=== PATIENT | female | born 1950 | race Caucasian/White ===

== ENCOUNTER 2016-12-07 09:12 | Emergency (ER) | payer MEDICARE, BC ==
[2016-12-07 09:36] VITALS: BP 135/61
--- NOTE | 2016-12-07 10:36 | UC ---
Abdominal Pain Female HPI - HPI Summary HPI Summary: OCCASIONAL BURNING EPIGASTRIC PAIN BEGAN AFTER TAKING METHOTREXATE FOLIC ACID AND HYDROXYCHLOROQUINE IN OCTOBER. HAS BEEN IN COMMUNICATION WITH PCP & FINANCIAL SERVICES CONSULTANT REGARDING THIS CONCERN, BUT NO RELIEF OVER TIME. UNABLE TO GET APPOINTMENT WITH PCP UNTIL DECEMBER, UNABLE TO CONTACT [facility] FOR APPOINTMENT. NO BLACK OR TARRY STOOLS. RELIEF WITH TUMS -TYPE ANTACID. AGGRIVATED BY MILK AND ICE CREAM. - History of Current Complaint Chief Complaint: UCGI Stated Complaint: BURNING ABDOMINAL PAIN Time Seen by Provider: 12/07/16 09:58 Hx Obtained From: Patient Onset/Duration: Gradual Onset, Lasting Weeks, Still Present Severity Initially: Mild Severity Currently: Mild Location: Epigastric Radiates: No Character: Burning Aggravating Factor(s): Food Alleviating Factor(s): Antacids Allergies/Adverse Reactions: Allergies Allergy/AdvReac Type Severity Reaction Status Date / Time Aspirin Allergy Hives Verified 12/07/16 09:29 Sulfa Antibiotics AdvReac GI Upset Verified 12/07/16 09:29 and Diarrhea Home Medications: Home Medications Cholecalciferol [Vitamin D3 Ultra Strength] 12,500 unit PO MONTHLY 12/07/16 [ History Confirmed 12/07/16] Docusate CAP* [Colace Cap*] 200 mg PO DAILY PRN 12/07/16 [History Confirmed ] Insulin Degludec [Tresiba Flextouch] 28 unit SC BEDTIME 12/07/16 [History Confirmed 12/07/16] Polyethylene Glycol 3350* [Miralax*] 17 gm PO DAILY PRN 12/07/16 [History Confirmed 12/07/16] PMH/Surg Hx/FS Hx/Imm Hx Previously Healthy: Yes Endocrine History Of: Reports: Diabetes, Thyroid Disease - Surgical History Surgical History: Yes Surgery Procedure, Year, and Place: Hysterectomy, 1979. Tubal Ligation, 1973. , 1973 - Family History Known Family History: Positive: Diabetes - Social History Occupation: Employed Full-time Lives: With Family Alcohol Use: Occasionally Substance Use Type: None Smoking Status (MU): Never Smoked Tobacco - Immunization History Most Recent Influenza Vaccination: May 2016 Most Recent Pneumonia Vaccination: Never Review of Systems Constitutional: Negative Skin: Negative Eyes: Negative ENT: Negative Respiratory: Negative Cardiovascular: Negative Gastrointestinal: Abdominal Pain - EPIGASTRIC BURNING Genitourinary: Negative Motor: Negative Neurovascular: Negative Musculoskeletal: Negative Neurological: Negative Psychological: Negative All Other Systems Reviewed And Are Negative: Yes Physical Exam Triage Information Reviewed: Yes Appearance: Well-Appearing, No Pain Distress, Well-Nourished Vital Signs: Initial Vital Signs Temp 98.2 F 12/07/16 09:16 Pulse 76 12/07/16 09:16 Resp 16 12/07/16 09:16 BP 135/61 12/07/16 09:16 Pulse Ox 99 12/07/16 09:16 Vital Signs Reviewed: Yes Eye Exam: Normal ENT Exam: Normal ENT: Positive: Normal ENT inspection, Hearing grossly normal, Pharynx normal, TMs normal Dental Exam: Normal Neck exam: Normal Respiratory Exam: Normal Respiratory: Positive: Chest non-tender, Lungs clear, Normal breath sounds, No respiratory distress, No accessory muscle use Cardiovascular Exam: Normal Cardiovascular: Positive: RRR, No Murmur Abdomen Description: Negative: Nontender - MILD EPIGASTRIC TENDERNESS WITH DEEP PALPATION, CVA Tenderness (R), CVA Tenderness (L), Guarding, Hepatomegaly, McBurney's Point Tenderness Bowel Sounds: Positive: Present Musculoskeletal Exam: Normal Neurological Exam: Normal Psychological Exam: Normal Skin Exam: Normal Abd Pain Female Course/Dx - Differential Dx/Diagnosis Differential Diagnosis: Gall Bladder Disease, Hepatitis, Pancreatitis Provider Diagnoses: GASTRITIS. POSSIBLE ADVERSE MEDICATION REACTION ( METHOTREXATE 10% GASTRITIS/GERD REPORTED ADVERSE EFFECT) Discharge - Discharge Plan Condition: Stable Disposition: HOME Prescriptions: Pantoprazole Sodium [Protonix] 40 mg PO DAILY #14 tab Patient Education Materials: Gastritis (ED), Adverse Drug Reaction (ED) Referrals: Destini Mota MD [Primary Care Provider] - Damion Washburn MD [Medical Doctor] - Additional Instructions: PLEASE FOLLOW UP WITH YOUR RHUEMATOLOGIST. IF SYMPTOMS BECOME SEVERE OR IF NEW SYMPTOMS DEVELOP PLEASE SEEK EVALUATION AT EMERGENCY DEPARTMENT.
== END 2016-12-07 10:29 | disposition home or self-care (01) ==
LOC: UCCORT 09:12
DX: K29.70 Gastritis, unspecified, without bleeding (principal); Z88.6 Allergy status to analgesic agent; Z88.2 Allergy status to sulfonamides; E11.9 Type 2 diabetes mellitus without complications; Z79.4 Long term (current) use of insulin
CPT/HCPCS: 93005; 99212; G0463

== ENCOUNTER 2017-03-04 09:19 | Emergency (ER) | payer MEDICARE, BC ==
[2017-03-04 10:33] VITALS: BP 128/81
--- NOTE | 2017-03-04 10:48 | UC ---
Back Pain HPI - HPI Summary HPI Summary: left flank pain x 3 day , no known injury also noted to have multiple bruising on her arms bilaterally without injury no fever, no chills, no n/v/d/c , no urinary sx was treated recently with Methotrexate for arthritis, medication was stopped due to sever gastritis - History of Current Complaint Chief Complaint: UCUpperExtremity Stated Complaint: LEFT SIDE PAIN Time Seen by Provider: 03/04/17 10:02 Hx Obtained From: Patient Onset/Duration: Gradual Onset, Lasting Days - 3, Still Present Timing: Constant Severity Initially: Moderate Severity Currently: Moderate Back Pain: Is Discrete @ - left flank Character: Aching Aggravating: Movement Alleviating: Nothing Associated Signs And Symptoms: Positive: Bruising, Weakness, Flank Pain - left. Negative: Swelling, Redness, Bladder Incontinence, Bowel Incontinence, Weight Loss, Pain with Weight Bearing - Allergies/Home Medications Allergies/Adverse Reactions: Allergies Allergy/AdvReac Type Severity Reaction Status Date / Time Aspirin Allergy Hives Verified 03/04/17 09:56 Sulfa Antibiotics AdvReac GI Upset Verified 03/04/17 09:56 and Diarrhea PMH/Surg Hx/FS Hx/Imm Hx - Additional Past Medical History Additional PMH: arthritis Endocrine History: Diabetes - Surgical History Surgical History: Yes Surgery Procedure, Year, and Place: Hysterectomy, 1979. Tubal Ligation, 1973. , 1973 - Family History Known Family History: Positive: Diabetes - Social History Alcohol Use: Occasionally Substance Use Type: None Smoking Status (MU): Never Smoked Tobacco - Immunization History Most Recent Influenza Vaccination: May 2016 Most Recent Pneumonia Vaccination: Never Review of Systems Constitutional: Negative Skin: Negative Eyes: Negative ENT: Negative Respiratory: Negative Neurological: Negative All Other Systems Reviewed And Are Negative: Yes Physical Exam Triage Information Reviewed: Yes Appearance: Well-Appearing, No Pain Distress, Well-Nourished Vital Signs: Initial Vital Signs Temp 99 F 03/04/17 09:51 Pulse 99 03/04/17 09:51 Resp 16 03/04/17 09:51 BP 128/81 03/04/17 09:51 Pulse Ox 98 03/04/17 09:51 Vital Signs Reviewed: Yes Eyes: Positive: Conjunctiva Clear ENT: Positive: Normal ENT inspection, Hearing grossly normal, Pharynx normal Neck: Positive: Supple, Nontender, No Lymphadenopathy Respiratory: Positive: Chest non-tender, Lungs clear, Normal breath sounds Cardiovascular: Positive: RRR, No Murmur, Pulses Normal Abdomen Description: Positive: Nontender, Soft. Negative: CVA Tenderness (R), CVA Tenderness (L), Distended, Guarding Bowel Sounds: Positive: Present, Other: - tenderness left flank area , no rash seen Musculoskeletal Exam: Normal Musculoskeletal: Positive: Strength Intact, ROM Intact, No Edema Neurological: Positive: Alert Skin: Positive: Other - + multiple area of ecchymosis on her arms bilateraly Back Pain Course/Dx - Course Course Of Treatment: left flank pain , easy bruising , hematuria. will check cbc, cmp ,. please call the office in one day for the the results , concern about kidney damage/ low platlets from the use of Methotrexate. will start treatment with abx for urinary tract infection. please call your pcp and follow up in 2 or 3 days. go to ED if increase in pain , nausea / vomiting / GI bleeding. left flank pain , no rash , ?? cannot r/o shingles - Differential Dx/Diagnosis Provider Diagnoses: flank pain. easy brusing Discharge - Discharge Plan Condition: Stable Disposition: HOME Prescriptions: Cephalexin CAP* [Keflex CAP*] 500 mg PO TID #21 cap Patient Education Materials: Urinary Tract Infection in Women (ED), Flank Pain (ED) Referrals: Destini Mota MD [Primary Care Provider] - 3 Days Additional Instructions: left flank pain , easy bruising , hematuria will check cbc, cmp , please call the office in one day for the the results , concern about kidney damage/ low platlets from the use of Methotrexate will start treatment with abx for urinary tract infection please call your pcp and follow up in 2 or 3 days go to ED if increase in pain , nausea / vomiting / GI bleeding
[2017-03-04 14:18] LABS: Hematocrit 44 % (35-47); Hemoglobin 14.8 g/dl (12.0-16.0); Mean Corpuscular HGB Conc 33 g/dl (31-36); Mean Corpuscular Hemoglobin 32 pg (27-31); Mean Corpuscular Volume 95 fL (80-97); Mean Platelet Volume 10 um3 (7.4-10.4); Red Blood Count 4.65 10^6/ul (4.0-5.4); Red Cell Distribution Width 13 % (10.5-15); White Blood Count 7.2 10^3/ul (3.5-10.8)
[2017-03-04 14:29] LABS: Albumin 4.2 g/dL (3.2-5.2); Calcium 9.8 mg/dL (8.6-10.3); EGFR African American 99.7 (>60); EGFR Non-African American 77.6 (>60); Globulin 2.4 g/dL (2-4); Potassium 4.4 mmol/L (3.5-5.0); Total Bilirubin 0.6 mg/dL (0.2-1.0); Total Protein 6.6 g/dL (6.4-8.9)
== END 2017-03-04 10:47 | disposition home or self-care (01) ==
LOC: UCCORT 09:19
DX: R10.9 Unspecified abdominal pain (principal); S40.022A Contusion of left upper arm, initial encounter; S40.021A Contusion of right upper arm, initial encounter; X58.XXXA Exposure to other specified factors, initial encounter; Y93.9 Activity, unspecified; Y92.9 Unspecified place or not applicable; R31.9 Hematuria, unspecified; Z90.710 Acquired absence of both cervix and uterus; Z88.6 Allergy status to analgesic agent; Z88.2 Allergy status to sulfonamides
CPT/HCPCS: 36415; 80053; 81003; 85025; 87086; 99212; G0463

== ENCOUNTER 2017-11-03 09:51 | Emergency (ER) | payer MEDICARE, BC ==
[2017-11-03 12:47] VITALS: BP 173/97
--- NOTE | 2017-11-03 13:16 | UC ---
Back Pain HPI - HPI Summary HPI Summary: Pt c/o upper back pain, after slipping on ice on 10/23/17and to catch her fall she grabbed handrail on deck and said the " she twisted when she fell". Now c/ o mid thoracic spine to C6 and upper shoulder pain and stiffness. - History of Current Complaint Chief Complaint: UCBackPain Stated Complaint: NECK-MIDDLE BACK PAIN/BILATERAL SHOULDER PAIN Hx Obtained From: Patient ?: No Onset/Duration: Gradual Onset Timing: Constant Severity Initially: Mild Severity Currently: Moderate Pain Intensity: 7 Back Pain: Is Discrete @ - mid thoracic and upper back Character: Sharp, Stiffness Aggravating Factor(s): Movement, Lifting, Bending Alleviating Factor(s): Rest, Position Associated Signs And Symptoms: Positive: Negative - Risk Factors AAA Risk Factors: Negative TAD Risk Factors: Negative Cauda Equina Risk Factors: Negative Epidural Abscess Risk Factors: Negative - Allergies/Home Medications Allergies/Adverse Reactions: Allergies Allergy/AdvReac Type Severity Reaction Status Date / Time aspirin Allergy Hives Verified 11/03/17 12:36 Sulfa (Sulfonamide AdvReac GI Upset Verified 11/03/17 12:36 Antibiotics) Home Medications: Home Medications Adalimumab (NF) [Humira Pen (NF)] 1 applic SUBCUT SEE INSTRUCTIONS 11/03/17 [ History Confirmed 11/03/17] Enalapril TAB* [Vasotec TAB*] 1 tab PO BEDTIME 11/03/17 [History Confirmed 11/03] PMH/Surg Hx/FS Hx/Imm Hx Previously Healthy: Yes Other Cancer History: chronic back pain - Surgical History Surgical History: Yes Surgery Procedure, Year, and Place: Hysterectomy, 1979. Tubal Ligation, 1973. , 1973. Cataract surgery. Left Eye surgery - Family History Known Family History: Positive: Diabetes - Social History Occupation: Retired Lives: With Family Alcohol Use: Occasionally Substance Use Type: None Smoking Status (MU): Never Smoked Tobacco Have You Smoked in the Last Year: No - Immunization History Most Recent Influenza Vaccination: May 2016 Most Recent Pneumonia Vaccination: Never Review of Systems Constitutional: Negative Skin: Negative Eyes: Negative ENT: Negative Respiratory: Negative Cardiovascular: Negative Gastrointestinal: Negative Genitourinary: Negative Motor: Decreased ROM - upper back Neurovascular: Negative Musculoskeletal: Arthralgia, Myalgia - upper back Neurological: Negative Psychological: Negative Is Patient Immunocompromised?: No All Other Systems Reviewed And Are Negative: Yes Physical Exam Triage Information Reviewed: Yes Appearance: Well-Appearing Vital Signs: Initial Vital Signs Temp 98.5 F 11/03/17 12:43 Pulse 82 11/03/17 12:43 Resp 18 11/03/17 12:43 BP 173/97 11/03/17 12:43 Pulse Ox 100 11/03/17 12:43 Vital Signs Reviewed: Yes Eye Exam: Normal ENT Exam: Normal Dental Exam: Normal Neck: Positive: Tenderness @ - C6- T5 Respiratory Exam: Normal Cardiovascular Exam: Normal Musculoskeletal: Positive: ROM Limited @ - upper back and shoulders Neurological Exam: Normal Psychological Exam: Normal Skin Exam: Normal Back Pain Course/Dx - Differential Dx/Diagnosis Differential Diagnosis/HQI/PQRI: Herniated Disc, Strain, Sprain Provider Diagnoses: upper back strain. upper back spasm Discharge - Discharge Plan Condition: Stable Disposition: HOME Prescriptions: Metaxalone TAB* [Skelaxin TAB*] 800 mg PO Q12H PRN #14 tab PRN Reason: Pain Patient Education Materials: Lower Back Exercises (ED), Thoracic Back Strain ( ED) Referrals: Destini Mota MD [Primary Care Provider] - If Needed Carin Livingston MD [Medical Doctor] - If Needed
== END 2017-11-03 13:30 | disposition home or self-care (01) ==
LOC: UCCORT 09:51
DX: S29.012A Strain of muscle and tendon of back wall of thorax, initial encounter (principal); M62.830 Muscle spasm of back; W00.0XXA Fall on same level due to ice and snow, initial encounter; Y92.9 Unspecified place or not applicable
CPT/HCPCS: 99212; G0463

== ENCOUNTER 2018-05-18 07:00 | Emergency (ER) | payer MEDICARE, BC ==
--- OUTSIDE RECORDS SUMMARY | 2018-05-18 07:11 | XMS REPORT ---
:1950 External Reference #:[id number] Author Organization [employer] Address [address] [place] [address] [place] [address] Phone [phone] Care Team Providers Name Role Phone Destini Mota MD Primary Care Physician Unavailable Payers Type Date Identification Numbers Payment Provider Subscriber Commercial Effective: Policy Number: BS Facets Kassidy Bullard 2011 [id number] Expires: 2017 PayID: [id number] [address] [address] [place] [address] Medigap Part B Policy Number: [id number] Medicare Kassidy Bullard PayID: [id number] [address] [place] [address] Medigap Part B Policy Number: [id number] Facets Kassidy Bullard PayID: [id number] [address] [address] [place] [address] Problems Date Description Provider Status Onset: 08/16/2014 Migraine with aura Essence Ballard M.D. Active Onset: 02/20/2016 Cervico-occipital neuralgia Essence Ballard M.D. Active Note: right Family History Date Family Member(s) Problem(s) Comments General Parkinson's Disease General [place] General Diabetes Type II General Prostate Cancer Father Heart Disease Father Parkinson's Disease Father due to Parkinsons Disease () Mother [place] Mother Diabetes Type II Mother due to [place] () First Brother Prostate Cancer First Brother due to Prostate Cancer () First Sister Diabetes Type II Second Sister Hernandez's Esophagus Social History Type Date Description Comments Marital Status Lives With Alone Occupation Retired Cigarette Use Never Smoked Cigarettes ETOH Use Denies alcohol use Smoking Patient has never smoked Recreational Drug Use Denies Drug Use Daily Caffeine Consumes on average 4 cups of regular coffee per day Exercise Type/Frequency Exercises regularly Allergies, Adverse Reactions, Alerts Date Description Reaction Status Severity Comments 05/17/2014 Sulfa Antibiotics active 05/17/2014 Aspirin active Moderate to Severe 03/06/2018 Macrobid active 03/06/2018 Amoxicillin active Medications Medication Date Status Form Strength Qnty SIG Indications Ordering Provider Propranolol HCL 02/09/ Active Tablets 20mg 270ta take 1 by Essence Caceres bs mouth Cowdery, every M.D. morning, and 2 by mouth every night Novolog // Active Solution 100Unit/M 1bott as Unknown 0000 L le directed Tresiba / Active Solution 100Unit/M 15ml 70 units t Unknown Flextouch 0000 Pen-Inject L at bedtime Lidoderm / Active Patches 5% 30uni topical 10 Unknown 0000 ts hours as needed Levothyroxine 0000/ Active Tablets 175mcg 90tab 1 by mouth Unknown Sodium 0000 s every day Diazepam / Active Tablets 5mg 2tabs 1 po prn Unknown 0000 for dizziness Multivitamins 00/00/ Active Capsules 30cap 1 capsule Unknown 0000 s daily Fiber 00/00/ Active Tablets 625mg 60tab 1 po qd Unknown 0000 s Probiotic 00/00/ Active Capsules 1 by mouth Unknown 0000 every day Valacyclovir 00/00/ Active Tablets 1gm by mouth Unknown HCL 0000 every day Clobetasol 00/00/ Active Ointment 0.05% topical Unknown Propionate 0000 bid every day as needed Calcium 500 + D / Active Tablets 500-200mg 1 by mouth Unknown 0000 -Unit daily Vitamin D 00/00/ Active Capsules 34361Qouj 1 capsule Unknown (Ergocalciferol 0000 by mouth q ) month Vitamin D 00/00/ Hx Tablets 1000Unit 30tab once a day Unknown (Cholecalcifero 0000 - s l) 2017 Nexium /00/ Hx Capsules DR 40mg 30cap 1 by mouth Unknown 0000 - s every day- weaning 2018 off Meloxicam 00/00/ Hx Tablets 15mg 30tab 1 po prn Unknown 0000 - s 2016 Calcium 600 00/ Hx Tablets 600mg 60tab 1 tabs by Unknown High Potency 0000 - s mouth 05/03/ every day 2018 in the morning [employer] / Hx Tablets 1 po qd Unknown 0000 - 2014 Colace / Hx Capsules 50mg 60cap 2 by mouth Unknown 0000 - s every day 2015 Zantac / Hx Tablets 150mg take 1 Unknown 0000 - tablet by 2018 twice a day as needed Vitamin D2 / Hx Tablets 1.25mg po qday Unknown 0000 - 2017 Carafate / Hx Suspension 1GM/10ML 10 ML by Unknown 0000 - mouth 2018 meals and at Bedtime Vital Signs Date Vital Result Comment 05/12/2018 Height 67 inches 5'7" Weight 120.25 lb Heart Rate 87 /min BP Systolic Sitting 132 mmHg BP Diastolic Sitting 80 mmHg Respiratory Rate 16 /min O2 % BldC Oximetry 99 % BMI (Body Mass Index) 18.8 kg/m2 05/06/2017 Height 67 inches 5'7" Weight 127.00 lb Heart Rate 76 /min BP Systolic Sitting 140 mmHg BP Diastolic Sitting 72 mmHg Respiratory Rate 17 /min Pain Level 0 O2 % BldC Oximetry 98 % Ra BMI (Body Mass Index) 19.9 kg/m2 02/20/2016 Height 67 inches 5'7" Weight 143.00 lb Heart Rate 68 /min BP Systolic Sitting 134 mmHg BP Diastolic Sitting 74 mmHg BMI (Body Mass Index) 22.4 kg/m2 02/14/2015 Height 67 inches 5'7" Weight 156.00 lb Heart Rate 80 /min BP Systolic Sitting 142 mmHg BP Diastolic Sitting 76 mmHg BMI (Body Mass Index) 24.4 kg/m2 08/16/2014 Height 67 inches 5'7" Weight 157.00 lb Heart Rate 67 /min BP Systolic Sitting 136 mmHg BP Diastolic Sitting 86 mmHg BMI (Body Mass Index) 24.6 kg/m2 05/17/2014 Weight 151.00 lb Heart Rate 79 /min BP Systolic Sitting 130 mmHg BP Diastolic Sitting 82 mmHg Respiratory Rate 12 /min Results Description No Information Procedures Date CPT Code Description Status 06/17/2013 23039 Nerve Conduction 09- Studies Completed 06/17/2013 12513 Needle Electromyography Complete, Five Or More Muscles Completed Studied 06/17/2013 01379 Needle Electromyography Each Extremity W/Related Completed Paraspinal Areas Encounters Type Date Location Provider CPT E/M Dx Office Visit 05/06/2017 Harish Ballard M.D. 96921 G43.109 10:15a Neurologic Serv Of Nurse Ldr Office Visit 02/20/2016 Harish Ballard M.D. 23298 G43.109 8:45a Neurologic Serv Of Nurse Ldr M54.81 Office Visit 02/14/2015 8:45a Harish Ballard 97515 346.70 Neurologic Serv Of Nurse Ldr M.D. Office Visit 08/16/2014 8:45a Zack/Radha Ballard 04405 346.70 Neurologic Serv Of Nurse Ldr M.D. Office Visit 05/17/2014 8:30a Zack/Radha Ballard 57115 346.70 Neurologic Serv Of Nurse Ldr M.DKrista 401.9 782.0 386.9 728.85 Office Visit 06/15/2013 8:45a Harish Ballard 77449 346.70 Neurologic Serv Of Nurse Ldr M.DKrista 401.9 782.0 729.5 Office Visit 02/09/2013 9:00a Zack/Radha Ballard 78806 346.90 Neurologic Serv Of Nurse Ldr M.D. Plan of Care Future Appointment(s):05/18/2019 8:30 am - Essence Ballard M.D. at [facility]05/12/2018 - Essence Ballard M.D.G43.109 Migraine with aura, not intractable, w/o status migrainosusFollow up:1 year (30 min) Recommendations:call with update regarding name and dose of new blood pressure medication. Highly suggest getting health care proxy.M54.81 Occipital neuralgia
[2018-05-18 07:16] VITALS: BP 155/85
--- NOTE | 2018-05-18 08:02 | UC ---
Complaint Female HPI - HPI Summary HPI Summary: 67-year-old patient who states that she has had burning urination and left lower back pain along with low-grade fever MAXIMUM TEMPERATURE 99.6 for the past 3 days. She denies colicky pain in waves. Has a remote history of kidney stones several decades ago. Denies recurrent urinary tract infections. - History Of Current Complaint Chief Complaint: UCGU Stated Complaint: URINARY COMPLAINT Time Seen by Provider: 05/18/18 07:11 Hx Obtained From: Patient ?: No Onset/Duration: Gradual Onset, Lasting Days Timing: Constant Severity Initially: Moderate Severity Currently: Severe Pain Intensity: 7 Character: Dull, Burning Aggravating Factor(s): Urination Alleviating Factor(s): Nothing Associated Signs And Symptoms: Positive: Fever - Risk Factors Ectopic Risk Factor: Negative Ovarian Torsion Risk Factor: Negative - Allergies/Home Medications Allergies/Adverse Reactions: Allergies Allergy/AdvReac Type Severity Reaction Status Date / Time aspirin Allergy Hives Verified 11/03/17 12:36 Sulfa (Sulfonamide AdvReac GI Upset Verified 11/03/17 12:36 Antibiotics) PMH/Surg Hx/FS Hx/Imm Hx Previously Healthy: Yes Endocrine History: Diabetes, Hypothyroidism Cardiovascular History: Hypertension Psychological History: Anxiety - Surgical History Surgical History: Yes Surgery Procedure, Year, and Place: Hysterectomy, 1979. Tubal Ligation, 1973. , 1973. Cataract surgery. Left Eye surgery - Family History Known Family History: Positive: Diabetes - Social History Alcohol Use: Occasionally Substance Use Type: None Smoking Status (MU): Never Smoked Tobacco Have You Smoked in the Last Year: No - Immunization History Most Recent Influenza Vaccination: May 2016 Most Recent Pneumonia Vaccination: Never Review of Systems Constitutional: Fever Genitourinary: Dysuria, Frequency, Urgency Motor: Negative Neurovascular: Negative All Other Systems Reviewed And Are Negative: Yes Physical Exam Triage Information Reviewed: Yes Appearance: Well-Appearing, No Pain Distress, Well-Nourished Vital Signs: Initial Vital Signs Temp 97.8 F 05/18/18 07:09 Pulse 78 05/18/18 07:09 Resp 17 05/18/18 07:09 BP 155/85 05/18/18 07:09 Pulse Ox 100 05/18/18 07:09 Vital Signs Reviewed: Yes Eyes: Positive: Conjunctiva Clear ENT: Positive: Hearing grossly normal Neck: Positive: Supple, Nontender, No Lymphadenopathy Respiratory: Positive: Chest non-tender, Lungs clear, Normal breath sounds, No respiratory distress Cardiovascular: Positive: RRR, No Murmur, Pulses Normal, Brisk Capillary Refill Abdomen Description: Positive: No Organomegaly, Soft, CVA Tenderness (L), Other : - tender on left low lumbar area, Bowel Sounds: Positive: Present Musculoskeletal: Positive: Strength Intact, ROM Intact, No Edema Complaint Female Dx - Course Course Of Treatment: Patient with history of dysuria and urinary frequency for the past 3 days, prescribed Levaquin to be taken daily, instructed to increase fluid intake and mantain hydration and high urinary output, to return to clinic if not responding to medication early in the course or if symptoms progress. - Differential Dx/Diagnosis Provider Diagnoses: UTI Discharge - Sign-Out/Discharge Documenting (check all that apply): Patient Departure All imaging exams completed and their final reports reviewed: No Studies - Discharge Plan Condition: Stable Disposition: HOME Prescriptions: Levofloxacin TAB* [Levaquin TAB*] 500 mg PO DAILY 7 Days #7 tab Patient Education Materials: Levofloxacin (By mouth), Urinary Tract Infection in Children (ED) Referrals: Destini Mota MD [Primary Care Provider] - Additional Instructions: Please have Plenty of fluid intake , your urine should be light in color. Wear sun protection while on this antibiotic. - Billing Disposition and Condition Condition: STABLE Disposition: Home
== END 2018-05-18 08:04 | disposition home or self-care (01) ==
LOC: UCCORT 07:00
DX: N39.0 Urinary tract infection, site not specified (principal); E11.9 Type 2 diabetes mellitus without complications; M54.5 Low back pain; I10 Essential (primary) hypertension; Z88.6 Allergy status to analgesic agent; Z88.2 Allergy status to sulfonamides
CPT/HCPCS: 81003; 87077; 87086; 87186; 99212; G0463

== ENCOUNTER 2019-03-15 14:10 | Emergency (ER) | payer MEDICARE, BC ==
[2019-03-15 14:34] VITALS: BP 136/66
--- NOTE | 2019-03-15 14:46 | UC ---
UC General HPI - HPI Summary HPI Summary: pt is c/o pain to the outside of her R elbow for about a month. she has been doing gardening and yard work. same in past and an orthopedist injected the site twice. no hx injury. - History of Current Complaint Chief Complaint: UCUpperExtremity Stated Complaint: RIGHT ELBOW PAIN Time Seen by Provider: 03/15/19 14:36 Hx Obtained From: Patient Onset/Duration: Gradual Onset Timing: Constant Pain Intensity: 8 Aggravating: movement Alleviating: rest - Allergy/Home Medications Allergies/Adverse Reactions: Allergies Allergy/AdvReac Type Severity Reaction Status Date / Time aspirin Allergy Hives Verified 03/15/19 14:29 adalimumab [From Humira] AdvReac GI Upset Verified 03/15/19 14:29 etanercept [From Enbrel] AdvReac GI Upset Verified 03/15/19 14:29 Sulfa (Sulfonamide AdvReac GI Upset Verified 03/15/19 14:29 Antibiotics) PMH/Surg Hx/FS Hx/Imm Hx - Additional Past Medical History Additional PMH: PSORIATIC ARTHRITIS Endocrine History: Diabetes, Thyroid Disease - Surgical History Surgical History: Yes Surgery Procedure, Year, and Place: Hysterectomy, 1979. Tubal Ligation, 1973. , 1973. Cataract surgery. Left Eye surgery - Family History Known Family History: Positive: Diabetes - Social History Alcohol Use: Occasionally Substance Use Type: None Smoking Status (MU): Never Smoked Tobacco Have You Smoked in the Last Year: No - Immunization History Most Recent Influenza Vaccination: May 2016 Most Recent Pneumonia Vaccination: Never Review of Systems All Other Systems Reviewed And Are Negative: No Constitutional: Negative: Fever Skin: Negative: Rash Neurological: Negative: Weakness, Paresthesia, Numbness Physical Exam Triage Information Reviewed: Yes Appearance: Well-Appearing Vital Signs: Initial Vital Signs Temp 98.7 F 03/15/19 14:30 Pulse 94 03/15/19 14:30 Resp 15 03/15/19 14:30 BP 136/66 03/15/19 14:30 Pulse Ox 97 03/15/19 14:30 Vital Signs Reviewed: Yes Neck: Positive: Supple Respiratory: Positive: No respiratory distress Cardiovascular: Positive: RRR Musculoskeletal: Positive: Other: - RUE: no gross deformity, swelling or discoloration. tender over the lateral epicondyl. arm has full s/v/m function. pain reproducible with elbow extension against resistance. Neurological: Positive: Alert Psychological: Positive: Age Appropriate Behavior Skin Exam: Normal Skin: Negative: Rashes Course/Dx - Diagnoses Provider Diagnosis: Tennis elbow Discharge - Sign-Out/Discharge Documenting (check all that apply): Patient Departure All imaging exams completed and their final reports reviewed: No Studies - Discharge Plan Condition: Stable Disposition: HOME Patient Education Materials: Tennis Elbow (ED) Referrals: Chris Shah MD [Medical Doctor] - 7 Days Additional Instructions: CONSIDER A FOREARM STRAP FOR TENDINITIS - Billing Disposition and Condition Condition: STABLE Disposition: Home
== END 2019-03-15 14:57 | disposition home or self-care (01) ==
LOC: UCCORT 14:10
DX: M77.11 Lateral epicondylitis, right elbow (principal); X50.0XXA Overexertion from strenuous movement or load, initial encounter; Y93.H2 Activity, gardening and landscaping; Y92.9 Unspecified place or not applicable; E11.9 Type 2 diabetes mellitus without complications
CPT/HCPCS: 99211; G0463